=== PATIENT | male | born 1985 | race Hispanic/Latino ===

== ENCOUNTER 2022-06-03 14:53 | Emergency (ER) | payer OTHER, SELFPAY ==
[2022-06-03 15:05] VITALS: BP 174/97; PULSE 72; RESP 18; TEMP 36.5; O2SAT 100; BMI 25.0
--- NOTE | 2022-06-03 15:09 | DI.RAD.S_ITS ---
PROCEDURE: XR CHEST 1V INDICATIONS: Cough and flu-like symptoms eval for pneumonia TECHNIQUE: One view of the chest was acquired. COMPARISON: None. FINDINGS: Surgical changes and devices: None. Lungs and pleura: Mildly increased bronchovascular markings in bilateral hilar region are seen with mild bronchial wall thickening. No focal infiltrate. No pleural effusions or pneumothorax. Mediastinum: Mediastinal contours appear normal. Heart size is normal. Bones and chest wall: No suspicious bony lesions. Overlying soft tissues appear unremarkable. IMPRESSION: Suggestion of mild reactive airway disease such as bronchitis or viral illness. No focal infiltrate, pleural effusion or pneumothorax. Dictated by: Lucas Menjivar M.D. on 06/03/2022 at 15:47 Approved by: Lucas Menjivar M.D. on 06/03/2022 at 15:48
[2022-06-03 16:26] LABS: Influenza A - CEPHEID Flu A NEGATIVE (NEGATIVE); Influenza B - CEPHEID Flu B NEGATIVE (NEGATIVE); Respiratory Syncytial Virus Negative (Negative)
[2022-06-03 16:28] LABS: COVID-19 CEPHEID 4-PLEX PCR Negative (Negative)
--- NOTE | 2022-06-03 17:09 | ED_ITS ---
HPI - General Adult General Chief complaint: Upper Respiratory Symptoms Stated complaint: covid symptoms, chest pain Time Seen by Provider: 06/03/22 15:08 Source: patient Mode of arrival: Ambulatory History of Present Illness HPI narrative: 36-year-old male who yesterday started having what he describes as influenza/COVID like symptoms to include some upper chest congestion, body aches. 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 No recent antibiotics. No known sick contacts. Related Data Allergies Allergy/AdvReac Type Severity Reaction Status Date / Time Penicillins Allergy Verified 06/03/22 15:05 Review of Systems Constitutional Constitutional: Reports system reviewed and no additional complaints, except as documented ENT Ears, Nose, Mouth, and Throat: Reports system reviewed and no additional complaints, except as documented Respiratory Respiratory: Reports system reviewed and no additional complaints, except as documented Integumentary/Breasts Skin/Breast: Reports system reviewed and no additional complaints, except as documented Neurologic Neurologic: Reports system reviewed and no additional complaints, except as documented Hematologic/Lymphatic On Anticoagulants: No Patient History Medical History Healthy adult Social History Smoking Status: Current every day smoker Smoking Status: Current every day smoker alcohol intake frequency: a few times a week Substance Use Type: does not use Exam Initial Vital Signs Initial Vital Signs: Vital Signs Temperature 97.7 F 06/03/22 15:05 Pulse Rate 72 06/03/22 15:05 Respiratory Rate 18 06/03/22 15:05 Blood Pressure 174/97 H 06/03/22 15:05 Pulse Oximetry 100 06/03/22 15:05 Oxygen Delivery Method 06/03/22 15:05 HENMT Head: normal to inspection and normocephalic Resp Effort & Inspection: normal respiratory effort Auscultation: clear to auscultation bilaterally Cardio Rate: regular rate Skin General: no rashes or lesions noted Neuro General: patient alert, patient awake and moves all extremities Extrem General: normal to inspection and capillary refill normal Course Orders Ordered: ED Orders 06/03/22 15:09 XR chest 1V Stat 06/03/22 15:12 Covid-19 + FLU A/B + RSV - PCR Stat Vital Signs Vital signs: Vital Signs - 8 hr 06/03/22 15:05 06/03/22 17:29 Temperature 97.7 F Pulse Rate 72 70 Respiratory Rate 18 12 Blood Pressure 174/97 H 122/78 Pulse Oximetry 100 99 Oxygen Delivery Method Room Air Room Air Medical Decision Making Lab Data Labs: Lab Results 06/03/22 Range/Units 15:12 SARS-CoV-2 (PCR) Negative (Negative) Influenza A (RT-PCR) Flu a negative (NEGATIVE) Influenza B (RT-PCR) Flu b negative (NEGATIVE) RSV (PCR) Negative (Negative) Imaging Data Chest x-ray: Radiologist's Impression: [address] [address] XRay Report Signed Patient: Mike Rasmussen MR#: [id number] : 1985 Acct:[id number] Age/Sex: 36 / M Date of Service: 06/03/22 Loc: ED Accession Number: [id number] ?? Procedure: XR chest 1V Ordering Provider: Jake Sheriff D.O. PROCEDURE:? XR CHEST 1V ? INDICATIONS:? Cough and flu-like symptoms eval for pneumonia ? TECHNIQUE:? One view of the chest was acquired.? ? COMPARISON:? None. ? FINDINGS:? ? Surgical changes and devices:? None.? ? Lungs and pleura:? Mildly increased bronchovascular markings in bilateral hilar region are seen with mild bronchial wall thickening.? No focal infiltrate.? No pleural effusions or pneumothorax.? ? Mediastinum:? Mediastinal contours appear normal.? Heart size is normal.? ? Bones and chest wall:? No suspicious bony lesions.? Overlying soft tissues appear unremarkable.? ? IMPRESSION:? Suggestion of mild reactive airway disease such as bronchitis or viral illness.? No focal infiltrate, pleural effusion or pneumothorax. ? ? Dictated by: Lucas Menjivar M.D. on 06/03/2022 at 15:47 ? ? Approved by: Lucas Menjivar M.D. on 06/03/2022 at 15:48? MDM Narrative Medical decision making narrative: Afebrile. Lungs are clear. COVID and influenza and RSV negative. Chest x-ray shows viral illness. No indication for antibiotics. Discussed this with the patient. Informed him that he needs to follow-up with his medical department. He was given return precautions. He expressed understanding and agreement. 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 Your COVID and flu test today were both negative. Return to the emergency department for any new or worsening symptoms. Referrals: Joseph Garnett MD [Primary Care Provider] - Visit Report Forms: Patient Portal/API
[2022-06-03 17:29] VITALS: BP 122/78; PULSE 70; RESP 12; O2SAT 99
== END 2022-06-03 17:31 | disposition home or self-care (01) ==
PROVIDERS: Emergency Provider Emergency Medicine; PCP Student in an Organized Health Care Education/Training Program
DX: J06.9 Acute upper respiratory infection, unspecified (principal); Z20.822 Contact with and (suspected) exposure to COVID-19
CPT/HCPCS: 0241U; 71045; 99283